=== PATIENT | female | born 1955 | race Caucasian/White ===

== ENCOUNTER → 2021-10-29 14:42 | Outpatient (CLI) | payer MEDICARE, SELFPAY | PROVIDERS: Visit Provider Urology | DX: N20.0 Calculus of kidney (principal); Z01.812 Encounter for preprocedural laboratory examination; Z11.52 Encounter for screening for COVID-19 | CPT/HCPCS: C9803; U0003; U0005 ==

== ENCOUNTER 2021-10-30 09:22 | Day surgery (SDC) | payer MEDICARE, SELFPAY ==
--- NOTE | 2021-10-30 09:28 | XR_ITS ---
FINAL REPORT CLINICAL HISTORY: ureteral stone FINDINGS: A single view of the abdomen was obtained. There is a nonobstructive bowel gas pattern. There are no abnormally dilated loops of small bowel. There is a moderate amount of retained stool. No abnormal calcifications are identified. IMPRESSION: No abnormal calcifications are identified. Nonobstructive bowel gas pattern. Moderate amount of retained stool. Reviewed, Interpreted and Dictated by Alvin Velasquez MD Transcribed by Eloise Lazo Authenticated by Alvin Velasquez MD on 10/30/2021 01:19:58 PM [facility]
--- NOTE | 2021-10-30 11:47 | SUR.PREOP ---
Pt had KUB and office viist before surgery and Dr Escamilla reviewed KUB and cancelled Surgery
== END 2021-10-30 10:00 | disposition home or self-care (01) ==
PROVIDERS: PCP Urology; Visit Provider Urology
PROC: (CPT 52352; principal; 2021-10-30 10:30)
DX: N20.1 Calculus of ureter (principal); Z53.09 Procedure and treatment not carried out because of other contraindication
CPT/HCPCS: 74018